=== PATIENT | male | born 1960 | race Caucasian/White ===

== ENCOUNTER 2017-12-25 01:02 | Emergency (ER) | payer BC, OTHER ==
[2017-12-25] MEDS ORDERED: Lidocaine 1% w/Epinephrine 1:100K 20 ML VIAL ONE (01:46)
[2017-12-25] MEDS ORDERED: HYDROcodone/Acetaminophen 5/325 mg Tablet ONE (02:08)
[2017-12-25 02:36] LABS: #Basophils 0.1 thou/uL (0.0-0.2); #Eosinphils 0.1 thou/uL (0.0-0.7); #Lymphocytes 2.9 thou/uL (1.20-3.40); #Monocytes 0.3 thou/uL (0.11-0.59); %Basophils 1.4 % (0.0-1.0); %Eosinophils 0.8 % (0.0-10.0); %Lymphocytes 39.8 % (21.0-51.0); %Monocytes 4.3 % (0.0-10.0); %Neutrophils 53.8 % (42.0-75.0); Hemoglobin 16.6 g/dL (14.0-18.0); Mean Corpuscular HGB CONC 34.4 g/dL (32.0-36.0); Mean Corpuscular Hemoglobin 33.3 pg (27.0-31.0); Mean Corpuscular Volume 96.9 fL (78.0-98.0); Mean Platelet Volume 7.4 fL (7.4-10.4); Platelet Count 246 thou/uL (130-400); Red Blood Cell (RBC) Count 4.98 mill/uL (4.70-6.10); White Blood Cell (WBC) Count 7.4 thou/uL (4.8-10.8)
[2017-12-25 02:47] LABS: PTT 24.3 SEC (22.9-36.1); Prothrombin Time 12.9 SEC (12.0-14.7)
[2017-12-25 02:51] LABS: ALT (SGPT) 33 U/L (8-55); AST (SGOT) 21 U/L (5-34); Albumin 4.5 g/dL (3.5-5.0); Alcohol 170 mg/dL (Less than 10); Alkaline Phosphatase 64 U/L (40-150); Anion Gap 17 mmol/L (10-20); BUN (Urea Nitrogen) 18 mg/dL (8.4-25.7); Bilirubin, Total 0.3 mg/dL (0.2-1.2); Calc. Creatinine Clearance 0 mL/min (70-130); Calcium 8.8 mg/dL (7.8-10.44); Carbon Dioxide 18 mmol/L (22-29); Chloride 108 mmol/L (98-107); Estimated GFR-MDRD 84; Globulin 2.9 g/dL (2.4-3.5); Glucose 123 mg/dL (70-105); Potassium 4.1 mmol/L (3.5-5.1); Protein, Total 7.4 g/dL (6.0-8.3); Sodium 139 mmol/L (136-145)
--- NOTE | 2017-12-25 08:36 | CT ---
HEAD CT NONCONTRAST: Date: 12/25/17 INDICATION: Fall with head injury and pain. FINDINGS: There is no evidence of acute intracranial hemorrhage, mass effect, or midline shift. Ventricular sys tem is within normal limits of size. No depressed calvarial fracture or pneumocephalus. Mild mucosal thickening of the paranasal sinuses and mild opacification of each mastoid segment of the temporal domenic jazmin. Mild white matter ischemic disease is present. There is evidence of scalp injury posteriorly with laceration and overlying pam. IMPRESSION: 1. No acute intracranial hemorrhage or mass effect. 2. Evidence of mild chronic ischemic disease of the cerebral white matter. POS: JAMES
--- NOTE | 2017-12-25 08:37 | CT ---
CERVICAL SPINE CT: Date: 12/25/17 INDICATION: Fall with neck injury and pain. FINDINGS: Patient motion limits evaluation. There is no evidence of craniocervical distraction injury. The cervical spine vertebral body heights and alignment are relatively well preserved without evidence of subluxation or retropulsion of bone. There is no acute facet malalignment. IMPRESSION: 1. There is no evidence of an acute osseous abnormality of the cervical spine. 2. Mild degenerative change is present. POS: JAMES
== END 2017-12-25 03:02 | disposition home or self-care (01) ==
LOC: ERS 01:02
DX: S01.01XA Laceration without foreign body of scalp, initial encounter (principal); F10.129 Alcohol abuse with intoxication, unspecified; Y90.6 Blood alcohol level of 120-199 mg/100 ml; E78.5 Hyperlipidemia, unspecified; W01.10XA Fall on same level from slipping, tripping and stumbling with subsequent striking against unspecified object, initial encounter; Y92.59 Other trade areas as the place of occurrence of the external cause
CPT/HCPCS: 12002; 36415; 36416; 70450; 72125; 80053; 80307; 85025; 85610; 85730; 93005; J2001